=== PATIENT | male | born 1965 | race African-American/Black ===

== ENCOUNTER 2021-11-28 14:12 | Outpatient (CLI) | payer BC | END 2021-11-28 14:13 | disposition home or self-care (01) | LOC: SCSRAD 14:12 | PROVIDERS: ATTEND Internal Medicine Rheumatology | DX: M25.561 Pain in right knee (principal); M25.562 Pain in left knee; M25.551 Pain in right hip; M25.552 Pain in left hip; M16.0 Bilateral primary osteoarthritis of hip; M17.0 Bilateral primary osteoarthritis of knee | CPT/HCPCS: 72170; 72190 ==